=== PATIENT | female | born 1945 | race Two or more races ===

== ENCOUNTER 2017-12-01 08:56 | Outpatient (CLI) | payer OTHER ==
[~2017-12-01 08:56] MED LIST: AMOX1TAB12 PO; ASA81 MG; ASA81 MG PO; BENZONATATE 100 MG PO; BUDEO.25 IH; CILOSTAZOL50 MG; CILOSTAZOL50 MG PO; Carafate Susp 1G/10ML BLIST.PACK PO; GUAIFENESI100 MG/52 PO; KEFLEX500 MG PO; LEVAQUIN500 MG PO; LEVAQUIN750 MG PO; MEDROLPACK PO; METOPROLOL SUCC50 MG; Mucinex 600 MG TABLET.SA PO; NEURONTIN600 MG; Neurontin PO; ORPH100T PO; PERCOCET 5/321 UDTAB PO; PERCOCET 5/3251 TAB PO; PLAVIX 75MG PO; PLAVIX75 MG; PRILOSEC10 MG; PRILOSEC10 MG PO; Pepcid 20 MG TABLET PO; Pletal PO; Protonix PO; Proventil 0.083% 2.5MG/3ML AMPUL.NEB. IH; TOPROL XL50 M1 PO; TUSSI PRES-B L120 M1 PO; Toprol Xl 25MG TAB PO; ULTRAM50 MG PO; XOPENEX0.63 MG/3 IH; Xopenex 0.63 MG/3 ML SOLUTION IH; ZOCOR5 MG; Zoloft PO; Zolpidem Tartrate 10MG PO
== END 2017-12-01 17:00 | disposition home or self-care (01) ==
LOC: RX STUDY 08:56
DX: R13.14 Dysphagia, pharyngoesophageal phase (principal); K57.30 Diverticulosis of large intestine without perforation or abscess without bleeding; K44.9 Diaphragmatic hernia without obstruction or gangrene; K30 Functional dyspepsia

== ENCOUNTER 2018-02-02 14:30 | Emergency (ER) | payer OTHER ==
[~2018-02-02] VITALS: Ht 152.4 cm; Wt 69.4 kg
[2018-02-02] MEDS ORDERED: PROTONIX20 MG (16:18)
[2018-02-02] MEDS ORDERED: TOPROL XL50 M1 (16:18)
[2018-02-02] MEDS ORDERED: GABAPENTIN400 MG (16:18)
[2018-02-02] MEDS ORDERED: PLAVIX75 MG (16:18)
[2018-02-02] MEDS ORDERED: SIMVASTATIN20 MG (16:19)
[2018-02-02] MEDS ORDERED: RESTORIL15 M1 (16:19)
[2018-02-02] MEDS ORDERED: ZOLOFT25 MG (16:19)
[2018-02-02] MEDS ORDERED: LEVALBUTER0.63 MG/3 (16:20)
[2018-02-02] MEDS ORDERED: VENTOLIN HFA18 GM (16:20)
[2018-02-02] MEDS ORDERED: ULTRACET PO (20:07)
== END 2018-02-02 20:42 | disposition home or self-care (01) ==
LOC: ER 14:30
DX: R53.81 Other malaise (principal); N39.0 Urinary tract infection, site not specified; B96.1 Klebsiella pneumoniae [K. pneumoniae] as the cause of diseases classified elsewhere

== ENCOUNTER 2018-03-03 12:02 | Outpatient (CLI) | payer OTHER ==
[~2018-03-03 12:02] MED LIST changes: +GABAPENTIN400 MG; +LEVALBUTER0.63 MG/3; +PROTONIX20 MG; +RESTORIL15 M1; +SIMVASTATIN20 MG; +TOPROL XL50 M1; +ULTRACET PO; +VENTOLIN HFA18 GM; +ZOLOFT25 MG
== END 2018-03-03 15:56 | disposition home or self-care (01) ==
LOC: RAD 501 12:02
DX: J44.1 Chronic obstructive pulmonary disease with (acute) exacerbation (principal)

== ENCOUNTER 2018-04-15 09:14 | Outpatient (CLI) | payer OTHER | END 2018-04-15 16:10 | disposition home or self-care (01) | LOC: SONOGRAMA 09:14 | DX: M47.812 Spondylosis without myelopathy or radiculopathy, cervical region (principal); M47.817 Spondylosis without myelopathy or radiculopathy, lumbosacral region; M19.041 Primary osteoarthritis, right hand; M19.042 Primary osteoarthritis, left hand; M17.11 Unilateral primary osteoarthritis, right knee; M17.12 Unilateral primary osteoarthritis, left knee ==

== ENCOUNTER 2018-05-26 11:43 | Emergency (ER) | payer OTHER ==
[~2018-05-26] VITALS: Ht 152.4 cm; Wt 67.6 kg
== END 2018-05-26 14:06 | disposition home or self-care (01) ==
LOC: ER 11:43
DX: K52.89 Other specified noninfective gastroenteritis and colitis (principal)

== ENCOUNTER 2019-02-04 11:44 | Outpatient (CLI) | payer OTHER | END 2019-02-04 11:46 | disposition home or self-care (01) | LOC: MAMO-SONO 11:44 | DX: Z12.31 Encounter for screening mammogram for malignant neoplasm of breast (principal); Z87.898 Personal history of other specified conditions; N64.4 Mastodynia ==

== ENCOUNTER → 2019-02-04 | Outpatient (CLI) | payer OTHER | END | disposition home or self-care (01) | LOC: NUCLEAR 10:00 | DX: M17.12 Unilateral primary osteoarthritis, left knee (principal); M81.0 Age-related osteoporosis without current pathological fracture; M51.37 Other intervertebral disc degeneration, lumbosacral region; E88.89 Other specified metabolic disorders; M54.5 Low back pain ==

== ENCOUNTER 2019-05-13 15:02 | Inpatient (IN) | payer OTHER ==
[~2019-05-13] VITALS: Ht 152.4 cm; Wt 63.5 kg
[2019-05-24] MEDS ORDERED: PANTOPRAZOLE SO40 MG PO (09:36)
[2019-05-24] MEDS ORDERED: CARAFATE1 GM PO (09:37)
[2019-05-24] MEDS ORDERED: TESSALON PERLE100 M1 PO (09:53)
== END 2019-05-24 12:07 | disposition home or self-care (01) | DRG 190 ==
LOC: ER 15:02 → SURH 05-14 09:39 → SEC-K 05-14 09:39 → MEDJ 05-14 14:00 → SEC-K 05-14 14:04 → SURH 05-14 14:13
PROVIDERS: ADMIT Internal Medicine
PROC: 4A033R1 Measurement of Arterial Saturation, Peripheral, Percutaneous Approach (ICD-10-PCS; principal; 2019-05-14)
PROC: 3E0F7GC Introduction of Other Therapeutic Substance into Respiratory Tract, Via Natural or Artificial Opening (ICD-10-PCS; 2019-05-14)
PROC: BB24ZZZ Computerized Tomography (CT Scan) of Bilateral Lungs (ICD-10-PCS; 2019-05-14)
PROC: B246ZZZ Ultrasonography of Right and Left Heart (ICD-10-PCS; 2019-05-14)
PROC: BB24Y0Z Computerized Tomography (CT Scan) of Bilateral Lungs using Other Contrast, Unenhanced and Enhanced (ICD-10-PCS; 2019-05-14)
DX: J44.1 Chronic obstructive pulmonary disease with (acute) exacerbation (principal); J16.8 Pneumonia due to other specified infectious organisms; I11.9 Hypertensive heart disease without heart failure; E78.49 Other hyperlipidemia; F43.29 Adjustment disorder with other symptoms; I48.2 Chronic atrial fibrillation

== ENCOUNTER 2019-07-06 08:23 | Outpatient (CLI) | payer OTHER ==
[~2019-07-06 08:23] MED LIST changes: +CARAFATE1 GM PO; +PANTOPRAZOLE SO40 MG PO; +TESSALON PERLE100 M1 PO
== END 2019-07-09 10:06 | disposition home or self-care (01) ==
LOC: NUCLEAR 08:23
DX: R91.1 Solitary pulmonary nodule (principal)
CPT/HCPCS: 78815; A9552

== ENCOUNTER 2019-07-17 16:20 | Inpatient (IN) | payer OTHER ==
[~2019-07-17] VITALS: Ht 152.4 cm; Wt 65.8 kg
--- NOTE | 2019-07-17 17:00 | NUR ---
PTE REFIERE QUE TIENE DIFICULTAD RESPIRATORIA Y DOLOR ABDOMINAL DESDE HACE VARIOS BUTT SE UBICA PTE EN CAMA CON BARANDAS ELEVADA Y TIMBRE ACCESIBLE, SE CONECTA A MONITOR CARDIACO Y OXYMETRIA DE PULSO, SE REALIZA EKG Y SE PRESENTA AL DR MAR.
--- NOTE | 2019-07-17 17:25 | NUR ---
PACIENTE ALERTA Y ORIENTADA POR DEBRA ESFERAS. MS. POSADA ORIENTA A PACIENTE SOBRE PROCEDIMIENTO Y TX, REFIERE ENTENDER. EXTRAE MUESTRAS DE LABORATORIO CON MEDIDAS ASEPTICAS Y SE ENVIA A LABORAORIO. SE NOTIFICA TERAPIAS RESPIRATORIAS Y PEAK FLOW PENDIENTE,
--- NOTE | 2019-07-17 19:47 | NUR ---
PACIENTE ALERTA Y ORIENTADA X3. SE ORIENTA SOBRE TX Y PROCEDIMIENTO A REALIZAR Y REFIERE ENTENDER. SE REALIZA MUESTRA DE INFLUENZA YSABEL ORDEN MEDICA. SE ADMINISTRA MEDICAMENTO YSABEL ORDEN MEDICA. SE MANTIENE BAJO OBSERVACION POR CAMBIOS SIGNIFICATIVOS EN CAMA CON BARANDAS ELEVADAS, CONECTADA A MONITOR CARDIACO Y CANULA NASAL A 3 LITROS.
--- NOTE | 2019-07-17 23:55 | NUR ---
SE RECIBE FEMINA ALERTA EN CAMA CON BARANDAS SEGURAS Y ELEVADAS Y SEGURAS. AREA DE VENOPUNCION DOMINIC DE EDEMA O ENROJECIMIENTO. CONECTADA A MONITOR CARDIACO CON OXIMETRIA DE PULSO. PENDIENTE VISITA DE MEDICO CONSULTADO.
== END 2019-08-01 15:27 | disposition home or self-care (01) | DRG 190 ==
LOC: ER 16:20 → MEDJ 23:57
PROVIDERS: ADMIT Internal Medicine
PROC: 4A033R1 Measurement of Arterial Saturation, Peripheral, Percutaneous Approach (ICD-10-PCS; 2019-07-17)
PROC: 3E0F7GC Introduction of Other Therapeutic Substance into Respiratory Tract, Via Natural or Artificial Opening (ICD-10-PCS; 2019-07-17)
PROC: BW21Y0Z Computerized Tomography (CT Scan) of Abdomen and Pelvis using Other Contrast, Unenhanced and Enhanced (ICD-10-PCS; principal; 2019-07-19)
PROC: BB24ZZZ Computerized Tomography (CT Scan) of Bilateral Lungs (ICD-10-PCS; 2019-07-22)
DX: J44.1 Chronic obstructive pulmonary disease with (acute) exacerbation (principal); I50.31 Acute diastolic (congestive) heart failure; J45.41 Moderate persistent asthma with (acute) exacerbation; R65.10 Systemic inflammatory response syndrome (SIRS) of non-infectious origin without acute organ dysfunction; J98.11 Atelectasis; K29.00 Acute gastritis without bleeding; A08.8 Other specified intestinal infections; I11.0 Hypertensive heart disease with heart failure; I25.10 Atherosclerotic heart disease of native coronary artery without angina pectoris; I48.0 Paroxysmal atrial fibrillation; K44.9 Diaphragmatic hernia without obstruction or gangrene; K57.30 Diverticulosis of large intestine without perforation or abscess without bleeding; R59.0 Localized enlarged lymph nodes; R91.8 Other nonspecific abnormal finding of lung field; N28.1 Cyst of kidney, acquired; F43.29 Adjustment disorder with other symptoms; Z79.01 Long term (current) use of anticoagulants

== ENCOUNTER 2019-09-23 08:35 | Inpatient (IN) | payer OTHER ==
[~2019-09-23] VITALS: Ht 152.4 cm; Wt 54.4 kg
--- NOTE | 2019-09-23 08:48 | NUR ---
PACIENTE ALERTA Y ORIENTADA EN DIANDRA DEBRA ESFERAS, CON HX DE HBP Y COPD, DEPENDIENTE DE OXIGENO EN SOLORIO CASA, REFIERE VENIR A ER POR DIFICULTAD RESPIRATORIA DEBIDO A QUE DESDE CARLOS EDUARDO NO TIENE SERVICIO DE ELECTRICIDAD EN SOLORIO CASA Y NO TIENE TANQUE QUE OXIGENO POR LO QUE LLEVA SIN OXIGENO SUPLEMENTARIO DESDE CARLOS EDUARDO. PARAMEDICOS REFIEREN QUE LA SATURACION DE LA PACIENTE FUE 91% EN AMBIENTE. PACIENTE LLEGA A ER CON CANULA NASAL A LT SATURANDO 99%.
[2019-10-08] MEDS ORDERED: XOPENEX0.63 MG/3 IH (11:34)
[2019-10-08] MEDS ORDERED: IPRATROPIU0.2 MG/1 M IH (11:35)
[2019-10-08] MEDS ORDERED: INTESTINEX680 M1 PO (11:37)
[2019-10-08] MEDS ORDERED: FAMOTIDINE20 MG PO (11:37)
[2019-10-08] MEDS ORDERED: APETIGEN L790 MG/15 PO (11:38)
[2019-10-08] MEDS ORDERED: FLUCONAZOLE100 MG PO (11:40)
[2019-10-08] MEDS ORDERED: PROTONIX40 MG PO (11:42)
== END 2019-10-11 13:08 | disposition home or self-care (01) | DRG 190 ==
LOC: ER 08:35 → MEDI 22:16 → MEDJ 09-24 10:02
PROVIDERS: ADMIT Internal Medicine
PROC: 4A033R1 Measurement of Arterial Saturation, Peripheral, Percutaneous Approach (ICD-10-PCS; principal; 2019-09-23)
PROC: 3E0F7GC Introduction of Other Therapeutic Substance into Respiratory Tract, Via Natural or Artificial Opening (ICD-10-PCS; 2019-09-23)
PROC: 8E0ZXY6 Isolation (ICD-10-PCS; 2019-10-04)
PROC: 4A12X4Z Monitoring of Cardiac Electrical Activity, External Approach (ICD-10-PCS; 2019-10-04)
DX: J44.1 Chronic obstructive pulmonary disease with (acute) exacerbation (principal); J16.8 Pneumonia due to other specified infectious organisms; A41.9 Sepsis, unspecified organism; F43.29 Adjustment disorder with other symptoms; I10 Essential (primary) hypertension; D72.828 Other elevated white blood cell count; R91.8 Other nonspecific abnormal finding of lung field; D50.8 Other iron deficiency anemias; D63.0 Anemia in neoplastic disease; Z87.891 Personal history of nicotine dependence; I11.9 Hypertensive heart disease without heart failure; E78.49 Other hyperlipidemia; B96.89 Other specified bacterial agents as the cause of diseases classified elsewhere; K29.60 Other gastritis without bleeding

== ENCOUNTER 2019-10-22 11:17 | Emergency (ER) | payer OTHER ==
[~2019-10-22] VITALS: Ht 147.3 cm; Wt 59.9 kg
[~2019-10-22 11:17] MED LIST changes: +APETIGEN L790 MG/15 PO; +FAMOTIDINE20 MG PO; +FLUCONAZOLE100 MG PO; +INTESTINEX680 M1 PO; +IPRATROPIU0.2 MG/1 M IH; +PROTONIX40 MG PO
== END 2019-10-23 12:33 | disposition home or self-care (01) ==
LOC: ER 11:17
DX: S00.83XA Contusion of other part of head, initial encounter (principal); W18.39XA Other fall on same level, initial encounter; Y93.89 Activity, other specified; Y92.098 Other place in other non-institutional residence as the place of occurrence of the external cause; Y99.8 Other external cause status